=== PATIENT | female | born 1970 | race Caucasian/White ===

== ENCOUNTER 2023-10-06 20:38 | Emergency (ER) | payer OTHER, MEDICARE, MEDICAID, SELFPAY ==
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
[2023-10-06 20:57] VITALS: BP 162/102; BP 184/88; PULSE 82; PULSE 85; RESP 16; O2SAT 97; O2SAT 98; BMI 27.4
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
[2023-10-07] MEDS: Ibuprofen 600 MG TABLET PO (03:15)
[2023-10-07 03:24] VITALS: BP 155/87; PULSE 90; RESP 20; TEMP 36.4; O2SAT 96
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
== END 2023-10-07 03:50 ==
PROVIDERS: Emergency Provider Emergency Medicine Emergency Medical Services
DX: S01.01XA Laceration without foreign body of scalp, initial encounter (principal); S01.112A Laceration without foreign body of left eyelid and periocular area, initial encounter; Y00.XXXA Assault by blunt object, initial encounter; Y93.9 Activity, unspecified; Y92.049 Unspecified place in boarding-house as the place of occurrence of the external cause; Y99.9 Unspecified external cause status
CPT/HCPCS: 70450; 99284; 99285